=== PATIENT | male | born 1935 | race Caucasian/White ===

== ENCOUNTER 2020-06-11 14:30 | Outpatient (RCR) | payer MEDICARE, SELFPAY ==
--- NOTE | 2020-06-11 13:55 | OTOPEVAL ---
OCCUPATIONAL THERAPY EVALUATION REPORT AND DISCHARGE 06/11/2020 Raulito presents about 1 month after having an acute CVA affecting the left side. He presents with grossly intact and symmetrical UE strength with some slight distal weakness and incoordination in the left hand. 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 He is happy with this HEP and in agreement with discharge. Thank you for referring Raulito Abrams to [facility]. Please review, sign, date and return this Evaluation Report and Discharge ASHLEY. I agree with and certify that the following plan of care is medically necessary. Referring Physician Date Referring Provider: Alex Zavala MD *OT Outpatient Evaluation Start: 06/11/20 12:53 Therapy Assessment Status Assessment Status Assessment Status Evaluation Outpatient Past Medical History Past Medical History Source of Past Medical History Patient Neurological History Hx Cerebrovascular Accident (CVA) Yes: May 2020 Cardiovascular History Hx Cardiac Disorders No Significant History Respiratory History Hx Respiratory Disorders No Significant History Gastrointestinal History Hx Gastrointestinal Disorders No Significant History Genitourinary History Hx Genitourinary Disorders No Significant History Musculoskeletal History Hx Arthritis Yes Hx Fractures Yes: Right ankle/foot Hx Joint Replacement Yes: R TKA, needs L TKA HEENT History Hx Meniere's Syndrome Yes Evaluation Information Problem Diagnosis CVA Onset ~May 16, 2020 Subjective Information Patient states that he is Query Text:As Reported By Patient/ improving everyday regarding Family the left sided weakness. He states that he is using his left hand to whisk eggs, reach objects, and carry objects so that his left hand gets used as much as possible. He reports no functional deficits at this time. States he has returned to driving, grocery shopping, cooking, etc. Prior Level of Function Activity Level (Last 3 Months) Occupation Retired Hand Dominance Right Activity of Daily Living Ability Independent Indoor/Home Mobility Independent Community Mobility Independent Stairs Ability Not-Applicable Cooking Yes Cleaning Yes Laundry Yes Shopping Yes Driving Yes Home Setting Home Type House,Single Level Environmental Barriers Stairs, None Living Situation
--- NOTE | 2020-06-11 14:17 | PTOPEVAL ---
PHYSICAL THERAPY EVALUATION AND DISCHARGE NOTE Thank you for referring Raulito Abrams to [facility].? Please review, sign, date and return this plan of care ASHLEY. I agree with and certify that the following plan of care is medically necessary. Referring Physician Date Attending Provider: Alex Zavala MD Evaluation Outpatien t Past Medical History Past Medical History Source of Past Medical History Patient Neurological History Hx Cerebrovascular Accident (CVA) Yes: May 2020 Cardiovascular History Hx Cardiac Disorders No Significant History Respiratory History Hx Respiratory Disorders No Significant History Gastrointestinal History Hx Gastrointestinal Disorders No Significant History Genitourinary History Hx Genitourinary Disorders No Significant History Musculoskeletal History Hx Arthritis Yes Hx Fractures Yes: Right ankle/foot Hx Joint Replacement Yes: R TKA, needs L TKA HEENT History Hx Meniere's Syndrome Yes Evaluation Information Problem Diagnosis CVA Onset 05/15/20 Subjective Information Raulito is here today 1month Query Text:As Reported By Patient/ after CVA. States that he was Family in the hospital for 5 days and was sent home. He has been independent at home since then . States that he has been walking and doing exercise at home. He is growing tomatoes and taking care of other plants and gold fish in the garage. His granddaughter lives in a trailor at his house. He states that she does not currently help him, but she would if he needed. Prior Level of Function Activity Level (Last 3 Months) Occupation Retired Hand Dominance Right Activity of Daily Living Ability Independent Indoor/Home Mobility Independent Community Mobility Independent Stairs Ability Not-Applicable Cooking Yes Cleaning Yes Laundry Yes Shopping Yes Driving Yes Home Setting Home Type House,Single Level Environmental Barriers Stairs, None Living Situation With Friend Support Available Local Family Support Mobility Assistive Devices (Used Last 3 None Months) Bathroom Environment Tub/Shower, Curtain Bathing Equipment None Toileting Equipment
--- NOTE | 2020-06-11 15:21 | STOPEVAL ---
SPEECH THERAPY INITIAL EVALUATION/DISCHARGE: Thank you for referring Raulito Abrams to [facility]Upon completion of evaluation, it has been determined that no further ST is warranted at this time. Please review, sign, date and return this evaluation and discharge plan of care ASHLEY. I agree with and certify that the following plan of care is medically necessary. Referring Physician Date Attending Provider: Alex Zavala MD Referring Provider: Alex Zavala MD *ST Outpatient Evaluation/Discharge Start: 06/11/20 14:13 Freq: Status: Active Protocol: Document 06/11/20 14:13 BECHERERT (Rec: 06/11/20 15:19 BECHERERT [email or web address]) Therapy Assessment Status Assessment Status Assessment Status Evaluation Outpatient Past Medical History Past Medical History Source of Past Medical History Patient Neurological History Hx Cerebrovascular Accident (CVA) Yes: May 2020 Cardiovascular History Hx Cardiac Disorders No Significant History Respiratory History Hx Respiratory Disorders No Significant History Gastrointestinal History Hx Gastrointestinal Disorders No Significant History Genitourinary History Hx Genitourinary Disorders No Significant History Musculoskeletal History Hx Arthritis Yes Hx Fractures Yes: Right ankle/foot Hx Joint Replacement Yes: R TKA, needs L TKA Hx Other Musculoskeletal Disorders Yes: neck surgery: 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 HEENT History Hx Meniere's Syndrome Yes Pain Assessment Timing of Pain Assessment Timing of Pain Assessment Assessment Self Report Self Report Pain Level 0 Pain Score Pain Score 0: Self Report Language Evaluation Auditory Comprehension Response Latency No Impairments Overall Auditory Comprehension Ability No Impairments Verbal Expression Sentence Formation in Spontaneous No Impairments Conversation Connected Speech No Impairments Response Latency No Impairments Overall Verbal Expression Ability No Impairments Dysarthria Evaluation Oral-Motor Assessment Lip Structure Asymmetrical Lip Protrusion Direction WNL,Range WNL, Strength Reduced Lip Lateralization Direction WNL,Range Reduced, Strength Reduced Lip Compression Direction WNL,Range WNL,Rate WNL,Strength WNL Lip Sensation Reduced Left Lip Comments my eye is droopy and my cheek is numb but not like it was Temporomandibular Joint Description Normal Teeth Condition Missing Teeth Mouth Occlusion Normal Soft Palate Elevation
== END 2020-06-12 12:00 | disposition home or self-care (01) ==
LOC: ANHST 14:30
PROVIDERS: PCP Family Medicine; Referring Provider Family Medicine; Visit Provider Family Medicine
DX: I63.9 Cerebral infarction, unspecified (principal); R47.01 Aphasia; R29.898 Other symptoms and signs involving the musculoskeletal system
CPT/HCPCS: 92523; 96125; 97110; 97161; 97165

== ENCOUNTER → 2022-11-26 09:16 | Outpatient (CLI) | payer MEDICARE, SELFPAY ==
--- NOTE | ~2022-11-26 | XR_ITS ---
Clinical Indication: Shortness of breath PA and lateral views of the chest: Comparison: 11/10/2016 Findings: The lungs are clear, without evidence of focal consolidation or pleural effusion. Cardiome diastinal silhouette is within normal limits. Bones and soft tissues are unremarkable. Impression: Normal chest. Reviewed, dictated and finalized at [facility]. Impression: Normal chest.
== END ==
PROVIDERS: PCP Family Medicine; Visit Provider Nurse Practitioner Family
DX: R06.02 Shortness of breath (principal)
CPT/HCPCS: 71046

== ENCOUNTER 2024-04-13 14:52 | Outpatient (CLI) | payer MEDICARE, SELFPAY ==
--- NOTE | ~2024-04-13 | XR_ITS ---
Left Knee Technique: AP, lateral, and sunrise views were obtained. Clinical History: Pain Findings: No fracture or dislocation is seen. There is lateral joint space narrowing and mild remodel ing, with mild to moderate tricompartmental osteophyte formation. Soft tissues are unremarkable. No j oint effusion is seen. Impression: Moderate to advanced tricompartmental degenerative change, probably worst at the lateral compartment. Reviewed, dictated and finalized at location M. OR BUSINESS ANALYST Impression: Moderate to advanced tricompartmental degenerative change, probably worst at th e lateral compartment.
--- NOTE | ~2024-04-13 | XR_ITS ---
Cervical Spine: AP, lateral, open-mouth views Clinical History: Pain Findings: There is posterior fusion from C1 through C4, with bilateral rods and transpedicular screws present. There is mild reversal normal cervical lordosis. There is grade 1 retrolisthesis of C4 over C5. There is severe degenerative disc narrowing from C3 through C7. There is extensive facet arthrop athy. No instability evident on flexion or extension. Impression: Severe degenerative spondylosis throughout the cervical spine, as above. Grade 1 retrolisthesis of C4-C5. Posterior fusion from C1 through C4. No instability evident on flexion or extension. Reviewed, dictated and finalized at [facility]. CAID SERVICE COORDINATOR Impression: Severe degenerative spondylosis throughout the cervical spine, as above. Grade 1 retrolisthesis of C4-C5. Posterior fusion from C1 through C4. No instability evident on flexion or exten luther.
== END 2024-04-13 14:53 | disposition home or self-care (01) ==
LOC: MICIMG 14:54
PROVIDERS: PCP Family Medicine; Visit Provider Nurse Practitioner Family
DX: M47.892 Other spondylosis, cervical region (principal); W19.XXXA Unspecified fall, initial encounter; Z98.1 Arthrodesis status; M17.12 Unilateral primary osteoarthritis, left knee
CPT/HCPCS: 72052; 73564

== ENCOUNTER 2024-05-08 16:30 | Outpatient (CLI) | payer MEDICARE, SELFPAY ==
--- NOTE | ~2024-05-08 | XR_ITS ---
EXAMINATION: XR chest 2V DATE: 05/08/2024 16:40 INDICATION: Pleural effusion, not elsewhere classified. TECHNIQUE: Frontal and lateral views of the chest were obtained. COMPARISON: Chest 2 views 11/26/2022 FINDINGS: Calcified right lung nodules are consistent with old granulomatous disease. There are small pleural effusions. There are airspace opacities at the lung bases. No pneumothorax. The heart size i s normal. There is mild chronic anterior wedge of multiple vertebral bodies. IMPRESSION: 1. Small pleural effusions. 2. Airspace opacities at the lung bases, consistent with atelectasis or less likely pneumonia. Reviewed, dictated and finalized at location A. OR CONSTRUCTION ESTIMATOR IMPRESSION: 1. Small pleural effusions. 2. Airspace opacities at the lung bases, consistent with atelectasis or less li marlene pneumonia.
== END 2024-05-08 16:31 | disposition home or self-care (01) ==
LOC: MICIMG 16:30
PROVIDERS: PCP Family Medicine; Visit Provider Family Medicine
DX: J90 Pleural effusion, not elsewhere classified (principal); R91.8 Other nonspecific abnormal finding of lung field
CPT/HCPCS: 71046